=== PATIENT | male | born 1970 | race Caucasian/White ===

== ENCOUNTER 2019-04-02 06:08 | Emergency (ER) | payer MEDICAID ==
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
== END 2019-04-02 07:14 | disposition home or self-care (01) ==
LOC: ER 06:08
DX: B86 Scabies (principal); F31.9 Bipolar disorder, unspecified; F41.9 Anxiety disorder, unspecified
CPT/HCPCS: Z7502